=== PATIENT | female | born 1955 | race Caucasian/White ===

== ENCOUNTER 2024-10-12 06:44 | Inpatient (IN) | payer BC, MEDICARE, SELFPAY ==
[2024-10-12] VITALS (14 sets, daily range): BP systolic 102–159; BP diastolic 58–97; BMI 39.3; BMI 37.8
[2024-10-12 04:21] LABS: % Basophils 0.5 % (0-2); % Immature Granulocytes 0.6 % (0-0.5); % Lymphocytes 12.9 % (20.5-51.1); Absolute Eosinophils 0.1 10^3/uL (0-0.7); Absolute Immature Granulocytes 0.1 10^3/uL (0-0.05); Absolute Lymphocytes 1.1 10^3/uL (1.2-3.4); Absolute Monocytes 0.6 10^3/uL (0.1-0.6); Absolute Neutrophils 6.5 10^3/uL (1.4-6.5); Hematocrit 41.1 % (37.0-47.0); Hemoglobin 13.6 g/dL (12.0-16.0); Mean Corp Hgb Conc. 33.1 g/dL (33.0-37.0); Mean Corpuscular Hgb 30.8 pg (27.0-31.0); Mean Corpuscular Volume 93.2 fL (81.0-99.0); Mean Platelet Volume 9.2 fL (7.4-10.4); Nucleated Red Blood Cells % 0 %; Platelet Count 241 10^3/uL (130-400); Red Blood Cell Count 4.41 10^6/uL (4.20-5.40); Red Cell Dist. Width 14.2 % (11.5-14.5); White Blood Cell Count 8.4 10^3/uL (4.8-10.8)
--- NOTE | 2024-10-12 04:36 | ED.GENMED ---
History of Present Illness
General
Chief Complaint: Chest Pain
Source: patient
Exam Limitations: none
Time Seen by Provider: 10/12/24 04:35
Nursing documentation reviewed up to this point in time: agreed with
History of Present Illness
History of Present Illness:
Pleasant 69-year-old female presents the emergency department with chest and jaw pain. This happened around 11:30 PM last evening. Patient also had palpitations at the time. Patient was seen by Dr. Arciniega's office and started on a Holter monitor
this past Tuesday. Patient is concerned because she does have a history of AR. She had a stent in 2009. Patient is also diabetic takes oral agents. She does have a history of rectal cancer. Has high blood pressure hyperlipidemia.
Vital signs are stable. Patient not hypoxic
Nursing note reviewed. I agree with nursing documentation up to this point in time.
Home Meds and allergies reviewed.
NUMBER AND COMPLEXITY OF PROBLEMS ADDRESSED AT THE ENCOUNTER
� Chronic conditions affecting care: Hypertension, hyperlipidemia, diabetes, CAD
� Acute Exacerbation and/or Progression of Chronic Illness: CAD
� Differential Diagnosis includes: AR, non-STEMI, musculoskeletal chest pain
AMOUNT AND/OR COMPLEXITY OF DATA TO BE REVIEWED AND ANALYZED
I performed an independent evaluation of the following and my interpretation is:
EKG: EKG shows normal sinus rhythm, rate of 90 with normal intervals, normal axis no evidence of acute ischemia present. No old EKG available for comparison.
Pulse Ox: Not Hypoxic
Electronic Components Assembler: Sinus Rhythm
CT:
X-rays:
Ultrasound:
Laboratory Studies: Troponin 0.056 and elevated
Other:
Review of other/old records:
Clinical information was obtained by an independent historian:
Prescriptions/Medications Considered but not given:
Further testing considered but not performed:
RISK OF COMPLICATIONS AND/OR MORBIDITY OR MORTALITY OF PATIENT MANAGEMENT
Social determinants of health affecting care: Good Social Support present at the bedside
Discussion with other providers: Hospitalist for admission
Escalation of care including admission/observation vs risk of discharge considered: After being observed in the emergency department, patient is stable for discharge.
CRITICAL CARE NOTE:
Critical care statement: A total of 30 minutes of critical care time was provided for this patient. This time is separate from time utilized to perform the aforementioned documented procedures. Aggregate critical care time includes only time
during which I was engaged in work directly related to the patient's care, as described above, whether at the bedside or elsewhere in the Emergency Department.
Total Time (exclusive of procedures):30
Update:
Review of Systems
Review of Systems
Allergies reviewed?: Yes
Other source history: family ( present at the bedside)
All Other Systems: Not applicable
Constitutional: Reports no symptoms
EENT: Reports no symptoms
Respiratory: Reports no symptoms
Cardiac: Reports chest pain
ABD/GI: Reports no symptoms
: Reports no symptoms
Musculoskeletal: Reports no symptoms
Skin: Reports no symptoms
Neurological: Reports no symptoms
Endocrine: Reports no symptoms
Hematologic/Lymphatic: Reports no symptoms
Psychiatric: Reports no symptoms
Phy Exam
General Physical Exam
General Presentation: well appearing and no apparent distress
General Skin: warm and dry
General Habitus: normal
General Mental: alert
General Hydration: appears well hydrated
ENT Exam
ENT Exam: EOMI, pharynx normal, neck supple and normocephalic
Eye Exam
Eye Exam: PERRL, cornea clear and conjunctiva normal
Cardiovascular Exam
Cardiovascular Exam: regular rate/rhythm, no edema, no murmur, normal peripheral pulses and other (Holter monitor in place)
Pulmonary Exam
Pulmonary Exam: lungs clear, no respiratory distress, no rales, no crackles, no rhonchi, no stridor, no wheezing and no cough
Gastrointestinal Exam
Gastrointestinal Exam: normal bowel sounds, non tender, soft, no organomegaly, no pulsatile mass and non distended
Neurological Exam
Neurological Exam: alert, oriented x3, no motor deficits and speech normal
Musculoskeletal Exam
Musculoskeletal Exam: full ROM and no edema
Skin Exam
Skin Exam: normal color, warm/dry, no rash and no petechia
Psychiatric Exam
Psychiatric Exam: normal mood/affect
Scores
Heart Score for Chest Pain Patients
STEMI patient?: No
History: Highly Suspicious
ECG: Normal
Age: >/= 65 years
Risk Factors: >/= 3 Risk Factors or History of CAD
Troponin: >1 - <3 x Normal Limit
Heart Score for Chest Pain Patients: 7
Heart Score Risk: 72.7 % MACE over next 6 weeks
Course
Orders/Labs/Results
Orders:
Orders
10/12/24 03:51
ECG [Electrocardiogram (*1)] Urgent
Reason for Study: Chest Pain
EKG- Treatment ONCE
10/12/24 04:05
Complete Blood Count/With Diff Urgent
10/12/24 05:21
Comprehensive Metabolic Panel Urgent
Troponin I Urgent
10/12/24 06:14
Aspirin 325 mg PO NOW STA
10/12/24 06:19
PTT Urgent
Comment: Obtain baseline before beginning heparin infusion if not already collected
Heparin 4,000 units IV NOW STA
Pharmacy Request to Place See Dose Instructions PO NOW STA
Discontinue all Active Warfarin orders?: Yes
Nursing to Place Non Medication Order As Directed
Physician Order: PTT 6 hours after initial start of Heparin infusion
10/12/24 06:23
Admit/Transfer Patient As Directed
Co-Sign Provider:
Level of Care: Inpatient admission
Assign to:: IVU
Physician / Group: hospitalist
Diagnosis: chest pain
Reason for Hospitalization: nstemi
Expected length of stay greater than two midnights?: Yes
ELOS- Estimated Length of Stay in days: 2
I certify the patient meets the requirements for IP care: Yes
PRN Pain Medication Management As Directed
May give lesser potent ordered pain med per pt: Yes
preference::
Protocol:: Medication orders for pain may be administered in a
manner that supports deferring to patient preference
when the pt is:
- Requesting an ordered lesser potent pain medication.
Least to most potent pain medications are defined
as: acetaminophen < NSAID < tramadol < opioids
(morphine, oxycodone, hydromorphone).
- Requesting a lesser dose of the same medication IF
ORDERED.
- Requesting a less intrusive route of administration
if both routes are prescribed by the provider (PO <
IV).
10/12/24 06:24
Code Status As Directed
Resuscitation Status: Full Code
10/12/24 06:30
Heparin 49838 Units/250 ml 25,000 units in 250 ml IV PER PROTOCOL
Weight to be used for heparin protocol in kilograms (kg):: 91.2
Protocol:: Cardiac Tx/Acute Coronary
PTT Goal Range to be used:: PTT 73 to 111 seconds
Order type:: Initial
INITIAL Infusion Dose (UNITS/KG/hr) & then follow protocol:: 15 units/kg/hr
Infusion Dose in UNITS/hr & then follow protocol (UNITS/hr):: 1,350
INFUSION RATE in mL/hr & then follow protocol (mL/hr):: 13.5
PTT less than or equal to 64 seconds:: Increase rate by 200 units/hr (+ 2 mL/hr)
PTT 64.1 to 72.9 seconds:: Increase rate by 100 units/hr (+ 1 mL/hr)
PTT 73 to 111 seconds:: Target Range. No change in rate.
PTT 111.1 to 130.9 seconds:: Decrease rate by 100 units/hr (- 1 mL/hr)
PTT 131 to 199.9 seconds:: HOLD for 1 hr. Then decrease rate by 200 units/hr (- 2 mL/hr)
PTT greater than or equal to 200 seconds:: HOLD for 2 hrs & Notify Provider. Then decrease by 200 units/hr (-
2 mL/hr)
Lab follow-up:: Each change, PTT q6h until 2 consecutive are therapeutic. Then PTT
daily.
CR Chest - 2 Views Urgent
Comment:
Reason For Exam: cp
10/12/24 07:[address] See Dose Instructions IV DIRECTED
Abnormal Lab Results
10/12/24 10/12/24
04:05 05:21
Abs Immat Gran (auto) 0.1 H 10^3/uL
(0-0.05)
Absolute Lymphs (auto) 1.1 L 10^3/uL
(1.2-3.4)
Immature Gran % 0.6 H %
(0-0.5)
Neutrophils % 78.0 H %
(42.2-75.2)
Lymphocytes % 12.9 L %
(20.5-51.1)
Chloride 108 H mmol/L
(98-107)
Carbon Dioxide 21 L mmol/L
(22-30)
BUN 26 H mg/dl
(7-17)
Creatinine 1.1 H mg/dL
(0.6-1.0)
Glucose 178 H mg/dl
(70-99)
Troponin I 0.056 H* ng/ml
10/12/24 04:05
10/12/24 05:21
Vital Signs
Initial and Last Documented VS:
Initial Vital Signs
Temp Pulse Resp BP Pulse Ox
98.2 F 97 16 137/74 96
10/12/24 03:45 10/12/24 03:45 10/12/24 03:45 10/12/24 03:45 10/12/24 03:45
Last Documented Vital Signs
Temp Pulse Resp BP Pulse Ox
98.2 F 74 16 102/60 93
10/12/24 03:45 10/12/24 05:15 10/12/24 06:04 10/12/24 05:20 10/12/24 05:15
*Pulse Oximetry
Patient hypoxic: no
*Critical Care Note
Total Time (30-74mins, 75-104mins- exclusive of procedures): 30
ED Attending Note
-
Portions of this chart may have been created with voice recognition software.� Occasional wrong word or��sound alike� substitutions may have occurred due to the inherent limitations of voice recognition software.
Discharge Plan
Departure
Patient Disposition: Admit
Date of Disposition: 10/12/24
Time of Disposition: 06:35
Admit to: IVU
Presentation/result/management discussed w/ accepting MD/DO: Hospitalist
Discharge Problem:
Chest pain
Prescriptions:
No Action
lisinopril 20 mg Tablet
20 mg PO DAILY
aspirin 81 mg Tablet,Delayed Release (Dr/Ec)
81 mg PO DAILY
glimepiride 2 mg Tablet
2 mg PO DAILY
cholecalciferol (vitamin D3) [Vitamin D3] 25 mcg (1,000 unit) Capsule
25 mcg PO DAILY
rosuvastatin 10 mg Tablet
10 mg PO DAILY
metoprolol tartrate 25 mg Tablet
25 mg PO BID
metformin 1,000 mg Tablet Extended Release 24hr
1,000 mg PO BID
duloxetine 30 mg Capsule,Delayed Release(Dr/Ec)
30 mg PO BID
Referrals:
Rachael Keller MD [Family Provider] -
Interventions
Interventions:
*Risk Screen - Suicide Last Done: 10/12/24 03:45
*General Assessment Last Done: 10/12/24 06:04
*Neglect/Abuse Screening Last Done: 10/12/24 03:45
*ED COVID-19 Vaccine History Last Done: 10/12/24 03:45
ED- Cardiac Assessment Last Done: 10/12/24 05:24
Discharge Date and Time
Print Language: ALBANIAN
[2024-10-12 05:50] LABS: ALT (SGPT) 16 U/L (0-35); AST (SGOT) 20 U/L (14-36); Albumin 3.5 g/dl (3.5-5.0); Alkaline Phosphatase 61 U/L (38-126); Blood Urea Nitrogen 26 mg/dl (7-17); Calcium 9.5 mg/dl (8.4-10.2); Carbon Dioxide 21 mmol/L (22-30); Chloride 108 mmol/L (98-107); Glucose 178 mg/dl (70-99); Potassium 4.4 mmol/L (3.5-5.1); Sodium 138 mmol/L (135-145); Total Bilirubin 0.3 mg/dl (0.2-1.3); eGFR 54.39
[2024-10-12 06:05] LABS: Troponin I 0.056 ng/ml
[2024-10-12] MEDS: ASPIRIN 325 MG PO (06:19)
--- NOTE | 2024-10-12 06:44 | HPS.HSE ---
Family Physician
-
Family Physician: Rachael Keller
Chief Complaint
-
Chest pain
History of Present Illness
This is a 69-year-old female with past medical history of dwc-udtvnqa-pvuicyuib diabetes, hypertension, history of CAD status post WI 2009 status post PCI x 1 at that time who presents to the emergency department with acute onset of chest discomfort
at around 12 midnight.
Patient reports a recent history of palpitations and was seen in cardiology clinic status post placement of her ambulatory monitor. She reported that after midnight today she felt the sensation of palpitations and then noted pain in her jaws and
also radiating to the back of her head. She reports the pain radiates to her left arm. She denies a pressure sensation. She reports some nausea without vomiting. She denied any diaphoresis. She denies shortness of breath. The pain was lasting
about 5 minutes before resolving and lasted for about 3 hours. She was chest pain-free on arrival in the emergency department. Patient reports compliance with her aspirin and statin. No recent episodes of exertional chest pain.
On arrival in the emergency department she was afebrile, hemodynamically stable with a blood pressure of 110/60 and a pulse of 70. ECG showed normal sinus rhythm at a rate of [address] or T wave changes. Troponin was 0.056. CBC was
unremarkable. Electrolytes BUN/creatinine were also unremarkable. Chest Xray remains pending.
Medical History
Past Medical History
Past Medical History: Reports CAD (Status post WI and stent in 2009.), Cancer (Bladder cancer, rectal cancer), HTN, Hypercholesterolemia and NIDDM
Past Surgical History: Reports Bowel Resection (Colostomy 2013,), Orthopedic (Left knee arthroplasty 2019) and Urological (Cystoscopy 2023)
Social History
Tobacco: Former Smoker
Alcohol: None
Drug: None
Personal:
Living: With Family
Family History
Family History: Not pertinent
Allergies / Home Medications
Allergies reflects when Allergies were last updated in [facility].
Home Medications with original date entered in [facility]
Allergy/Medication List:
Allergies
Allergy/AdvReac Type Severity Reaction Status Date / Time
No Known Allergies Allergy Unverified 10/12/24 03:44
Home Medications
aspirin 81 mg tablet,delayed release 81 mg PO DAILY 10/12/24
cholecalciferol (vitamin D3) 25 mcg (1,000 unit) capsule (Vitamin D3) 25 mcg PO DAILY 10/12/24
duloxetine 30 mg capsule,delayed release 30 mg PO BID 10/12/24
glimepiride 2 mg tablet 2 mg PO DAILY 10/12/24
lisinopril 20 mg tablet 20 mg PO DAILY 10/12/24
metformin 1,000 mg tablet,extended release 24hr (osmotic) 1,000 mg PO BID 10/12/24
metoprolol tartrate 25 mg tablet 25 mg PO BID 10/12/24
rosuvastatin 10 mg tablet 10 mg PO DAILY 10/12/24
Review of Systems
-
History Source: Patient
Constitutional: Reports No Symptoms
EENT: Reports No Symptoms
Respiratory: Reports No Symptoms
Cardiac: Reports Chest Pain and Palpitations
Abdomen/GI: Reports Nausea
: Reports No Symptoms
Musculoskeletal: Reports No Symptoms
Skin: Reports No Symptoms
Neurological: Reports No Symptoms
Endocrine: Reports No Symptoms
Hematologic/Lymphatic: Reports No Symptoms
Psych: Reports No Symptoms
Physical Exam
Vital Signs
Vital Signs
Temp Pulse Resp BP Pulse Ox
98.2 F 74 16 102/60 93
10/12/24 03:45 10/12/24 05:15 10/12/24 06:04 10/12/24 05:20 10/12/24 05:15
Physical Exam
General: Well Developed, Well Nourished, No Apparent Distress, Comfortable and Conversant
HEENT: NormoCephalic, Anicteric, Moist mucous membranes, Atraumatic, PERRLA and Neck Nontender
Respiratory: Clear
Cardiac: S1/S2 and Regular Rhythm
Breast: Deferred by me
GI: Soft, Non Tender, Non Distended and Normal Bowel Sounds
Rectal: Deferred by Provider
Genito-urinary: Deferred by me
Musculoskeletal: No Clubbing, No Cyanosis and No Edema
Skin: Warm
Neuro: AO x 3 and Nonfocal/grossly intact
Hematologic/Lymphatic: No Lymphadenopathy
Psych: Calm
Laboratory Results
-
10/12/24 04:05
10/12/24 05:21
Laboratory Results
Total Bilirubin 0.3 mg/dl (0.2-1.3) 10/12/24 05:21
AST 20 U/L (14-36) 10/12/24 05:21
ALT 16 U/L (0-35) 10/12/24 05:21
Alkaline Phosphatase 61 U/L (38-126) 10/12/24 05:21
Troponin I 0.056 ng/ml H* 10/12/24 05:21
Data Reviewed
-
Diagnostic Radiology: Image Personally Visualized and interpreted
Medical Tests (Nuc Med, Echo, EKG etc): Image Personally Visualized and interpreted
Lab Data: Labs Reviewed by me
Old Records: Reviewed
Impression/Plan
-
IMPRESSION:
69-year-old female with past medical history of CAD status post WI 2009, ykr-sdmkizo-jhifoigpx diabetes who presents to the emergency department with acute episode of chest pain starting at around 12 AM, associated with palpitations and chest pain
radiating to the jaw as well as the left. ECG was nonischemic. No arrhythmia on ECG. Troponin was elevated at 0.05. Patient with history of recent palpitations status post monitoring placed a few days ago by cardiology.
PLAN:
NSTEMI - ACS vs demand related ischemia in setting of arrhythmia. Currently chest pain free and no palpitations
- admit to telemetry
- s/p aspirin 325x 1, continue aspirin 81 daily, continue statin
- heparin gtt, cycle enzymes
- nitro prn chest pain if no arrythmia
- continue metoprolol tartrate bid
- echo, cardovascular testing
- npo pending cardiology eval
- cardiology consult, may eval monitor early
DM II -
- npo for now
- blood glucose q6 with low dose sliding scale insulin
- holding glimepiride and metformin
HTN
- stable, continue lisinopril and metoprolol
DVT PPX - on heparin gtt
Code status - Full Code
[2024-10-12 07:20] LABS: APTT 26.4 Sec (23.4-35.0)
[2024-10-12] MEDS: HEPARIN 25000 UNITS/250 ML IV (07:38)
[2024-10-12] MEDS: HEPARIN 4000 UNITS IV (07:38)
[2024-10-12 09:12] LABS: Troponin I 0.078 ng/ml
--- NOTE | 2024-10-12 09:15 | W.PN.HOSP.TC ---
Today's Communication/Plan
-
Hopeful for discharge tomorrow
Assessment / Plan
Assessment / Plan
HPI: 69-year-old female with past medical history of aqc-wvxyxdg-vlxcbejsu diabetes, hypertension, history of CAD status post RI 2010 status post PCI x 1 at that time who presents to the emergency department with acute onset of chest discomfort at
around 12 midnight.
NSTEMI - ACS vs demand related ischemia in setting of arrhythmia. Currently chest pain free and no palpitations
-Appreciate cardiology input, 10/12 cardiac catheterization shows nonobstructive coronary artery disease. She has a small diagonal branch with 70-80% lesion. Cardiology does not feel that this was the culprit, no stenting was performed. That they
did not think was the culprit so no stenting performed. admit to telemetry
-Cardiology recommends medical optimization, aspirin 81 mg daily, Toprol-XL 25 mg twice a day, lisinopril 20 mg daily
-Increase rosuvastatin to 20 mg daily, consider Imdur
DM II
-Hemoglobin A1c 6.7
-Hold metformin for 3 days post cath
-Can resume glimepiride upon discharge
-Carb controlled diet, sliding scale insulin
Essential hypertension
-Continue lisinopril and metoprolol
Obesity due to excess calories
� Affects all aspects of care
DVT prophylaxis�subcu Lovenox
Full code
Physical Exam
General: Obese, no acute distress
HEENT: Normocephalic, Atraumatic, EOMI, MMM
Respiratory: Clear to Auscultation bilaterally
Cardiac: Normal S1/S2, Regular Rate and Rhythm
GI: Soft, Nontender, Nondistended, Normal Bowel Sounds
Extremities: No Clubbing, Cyanosis, or Edema
Neuro: Nonfocal/Grossly Intact
Psych: Calm, Cooperative
Derm: No Visible lesions
Anticipated Discharge: Within 24 hours
Subjective/Interval History
-
Date of Service: October 12, 2024
No more recurrence of chest pain. No nausea, no vomiting.
Objective Data
-
Labs:
Laboratory Results
10/12/24 10/12/24 10/12/24
04:05 05:21 06:58
WBC 8.4
Hgb 13.6
Hct 41.1
Plt Count 241
APTT 26.4
Sodium Cancelled 138
Potassium Cancelled 4.4
Chloride Cancelled 108 H
Carbon Dioxide Cancelled 21 L
BUN Cancelled 26 H
Creatinine Cancelled 1.1 H
Glucose Cancelled 178 H
Calcium Cancelled 9.5
Total Bilirubin Cancelled 0.3
AST Cancelled 20
ALT Cancelled 16
Alkaline Phosphatase Cancelled 61
Vital Signs:
Vital Signs
Temp Pulse Resp BP Pulse Ox
98.2 F 63 16 113/58 94
10/12/24 08:38 10/12/24 07:30 10/12/24 08:38 10/12/24 07:09 10/12/24 08:38
[2024-10-12 09:41] LABS: Glucose - Point of Care 106 mg/dl (70-99)
[2024-10-12] MEDS: CYMBALTA DELAYED RELEASE 30 MG PO ×2 (10:13→20:05)
[2024-10-12] MEDS: CRESTOR 10 MG PO (10:13)
[2024-10-12] MEDS: ZESTRIL 20 MG PO (10:13)
--- NOTE | 2024-10-12 11:18 | CON.CAR ---
Addendum entered and electronically signed by Ramez Avelar MD 10/12/24 13:08:
I saw and examined the patient.
The NURSE OBGYN's note was reviewed and I agree with the note.
Comment:
69-year-old female with CAD s/p PCI in 2009 (done elsewhere), HTN, HLD, DM, obesity who presents with jaw pain radiating to her arm. She reports that she woke up last night around midnight with jaw pain that radiated to her left arm. It was
associated with palpitations. No nausea, vomiting, diuresis, or presyncope. It was stuttering in nature. She tried to take 2 of her husbands sublingual nitroglycerin tablets but these did not help. She decided to come to the ER around 3 AM. In
the ER her ECG showed normal sinus rhythm with no ischemic changes. Her troponin was 0.056 and trended to 0.078. She was given a full dose aspirin and started on a heparin drip. She is completely pain-free at the time of my interview. Of note
she was seen in our office by Dr. Arciniega on 10/09 and was complaining of exertional shortness of breath and palpitations. He ordered an echocardiogram, stress test, and 7-day ambulatory monitor which she is wearing at this time. Exam today is
notable for a well-appearing, comfortable woman. CV exam with regular rate and rhythm, no murmurs/rubs/gallops, lungs are clear to auscultation bilaterally and she has no lower extremity edema. Her labs are otherwise notable for creatinine 1.1.
Third troponin, hemoglobin A1c, and lipids are pending. Echocardiogram shows normal biventricular function with no regional wall motion abnormalities and no significant valvular disease. Given her symptoms and positive troponin, we need to rule
out epicardial coronary artery disease with left heart catheterization. She has received 325 mg aspirin and is on a heparin drip. Continue home metoprolol succinate 25 mg twice daily and lisinopril 20 mg daily. We will increase her rosuvastatin
to 20 mg daily given history of CAD. Follow-up repeat lipids.
Original Note:
Consultation
Consultation Request
Date/Time Consultation Requested: 10/12/24 8:30a
Date/Time Consultation Performed: 10/12/24 11a
Requesting Provider: Dr. Fong
Performing Provider: RINKU Simons for Dr. Avelar
Reason for Consultation: chest pain
Medical History
-
Chief Complaint: jaw/chest pain
History of Present Illness:
Mrs. Mckeon is a 69 yo female with CAD s/p PCI 2009, obesity, HTN, DM, HLD, rectal cancer with colostomy 2013 and bladder cancer, and junctional tachycardia, who presents to the ER with c/o jaw pain and racing heart feeling that woke her from
sleeping this am. She admits to mild chest pain and left upper shoulder pain as well. These symptoms would occur, last for 1 minute, resolve on their own then recur again. Currently she denies any symptoms. Initial EKG showed NSR, then SR 70 bpm
with nonspecific T wave abn. Troponin trend 0.056, 0.078. She was just seen by Dr. Arciniega in our office 10/09/24 and outpatient echo, stress test and 2 week monitor were ordered.
Past Medical History
Past Medical History: Other (as above)
Past Surgical History: Other (as above)
Social History
Tobacco: Former Smoker
Alcohol: None
Personal:
Living: With Family
Family History
Family History: Reviewed & Not Pertinent
Allergies / Home Medications
Allergy/AdvReac Type Severity Reaction Status Date / Time
No Known Allergies Allergy Unverified 10/12/24 03:44
�Medication �Instructions �Recorded �Confirmed �Type
aspirin 81 mg tablet,delayed 81 mg PO DAILY 10/12/24 10/12/24 History
release
cholecalciferol (vitamin D3) 25 25 mcg PO DAILY 10/12/24 10/12/24 History
mcg (1,000 unit) capsule (Vitamin
D3)
duloxetine 30 mg capsule,delayed 30 mg PO BID 10/12/24 10/12/24 History
release
glimepiride 2 mg tablet 2 mg PO DAILY 10/12/24 10/12/24 History
ibuprofen 200 mg tablet (Advil) 200 mg PO Q6HPRN PRN mild pain 10/12/24 10/12/24 History
lisinopril 20 mg tablet 20 mg PO DAILY 10/12/24 10/12/24 History
metformin 1,000 mg tablet 1,000 mg PO BID 10/12/24 10/12/24 History
metoprolol succinate 25 mg 25 mg PO BID 10/12/24 10/12/24 History
tablet,extended release 24 hr
(Toprol XL)
rosuvastatin 10 mg tablet 10 mg PO QPM 10/12/24 10/12/24 History
Review of Systems
-
History Source: Patient
All other systems: Negative unless noted
Physical Exam
Vital Signs
Temp Pulse Resp BP Pulse Ox
98.2 F 66 16 145/87 94
10/12/24 08:38 10/12/24 11:00 10/12/24 08:38 10/12/24 08:38 10/12/24 08:38
Lab Results
10/12/24 04:05
10/12/24 05:21
Troponin I 0.078 ng/ml H* D 10/12/24 08:18
Physical Exam
General: Well Developed, Well Nourished and No Apparent Distress
HEENT: Normocephalic, Anicteric and Moist Mucous Membranes
Respiratory: Clear and Non Labored Respirations
Cardiac: S1/S2 and Regular Rhythm
Breast: Deferred by me
GI: Soft, Non Tender, Non Distended and Normal Bowel Sounds
Rectal: Deferred by Provider
Genito-urinary: No Costovertebral Tender
Musculoskeletal: No Cyanosis and Edema
Skin: Warm and Dry
Neuro: AO x 3
Hematologic/Lymphatic: No Lymphadenopathy
Psych: Calm
Impression / Plan
-
Jaw/chest/left arm pain - acute last night and now resolved.
- NSTEMI with abn troponin trend 0.056, 0.078.
- check echo now.
- ASA, IV Heparin.
- last PCI 07/2010.
- plan for [facility] today.
HTN - stable on outpatient Toprol, Lisinopril, continue.
HLD - on crestor 10mg daily.
- lipids pending.
Junctional tachycardia - c/o palpitations, racing heart.
- 2 week outpatient cardiac monitor technician was ordered this week.
DM - on Glimepiride as outpatient.
- per primary service.
Obesity - BMI 37.8.
- we reviewed guidelines for weight loss.
Data Reviewed
-
EKG: Tracing Personally Visualized and interpreted (NSR 70 bpm with nonspecific T wave abn)
Radiology: Report Reviewed by me (cxr: NAD)
Labs: Labs Reviewed by me
Old Records: Reviewed
[2024-10-12] MEDS: TOPROL XL 25 MG PO ×2 (11:37→20:05)
--- NOTE | 2024-10-12 11:44 | PTCARENOTE ---
Rec'd pt from ED. Heparin gtt infusing at 13.5 ml/hr. Pt has no c/o CP/discomfort at this time. Assessment completed as documented. VSS. Tele- SR. Oriented pt to unit. Currently in bed; call danette w/in reach.
[2024-10-12 12:29] LABS: Glucose - Point of Care 126 mg/dl (70-99)
[2024-10-12 13:38] LABS: APTT 80.7 Sec (23.4-35.0)
[2024-10-12 13:57] LABS: HDL Cholesterol 54 mg/dl; LDL Cholesterol, Calculated 32 mg/dl; Total Cholesterol 118 mg/dl (50-199); Triglyceride 160 mg/dl (10-149); Very Low Density Lipoprotein 32 mg/dl (0-30)
--- NOTE | 2024-10-12 14:05 | CM ---
CM following for DC planning needs.
Met w/ patient at bedside to complete initial assessment.
Pt. resides in a private, 2 story home w/ spouse. Functionally, patient is indep. at baseline w/ ADLs, mobility without the use of any assisted device.
Goal is for home, no needs.
Will cont. to follow.
[2024-10-12 15:03] LABS: Glycohemoglobin (HgbA1c) 6.7 % (4.0-5.6)
--- NOTE | 2024-10-12 16:02 | ITS.CL.PN ---
[facility] - Procedure Note
Procedure
Procedure Note:
CARDIAC CATHETERIZATION REPORT
Date of Procedure: 10/12/2024
Referring: Dr. Agnieszka Avelar MD
INDICATION: NSTEMI
PROCEDURE:
1. Left heart catheterization
2. Coronary angiography
ACCESS: 6F right radial artery (TR band)
CATHETERS:
1. 6F JR4
2. 6F JL3.5
HEMODYNAMIC DATA
LV 141/18 (EDP 18) mmHg
AO 149/76 (mean 104) mmHg
CORONARY ANGIOGRAPHY
LM: large, normal
LAD: large vessel giving rise to a small D1 and moderate caliber D2. There is a patent stent in the proximal LAD with mild ISR. There is a focal 40% stenosis in the mid LAD, and a focal 70% stenosis in the ostium of D2. There is TIMI3 flow
throughout the LAD.
Ramus: moderate caliber branch with mild disease.
LCx: large vessel giving rise to a large OM1 and small LPL branch. There is mild non-obstructive disease.
RCA: large vessel giving rise to a moderate caliber RPDA and moderate caliber RPL branch. There is mild non-obstructive disease.
RADIATION:
Radiation (mGy): 300
DAP (cm2.Gy): 3.3
Fluoroscopy time (minutes): 18.7
CONCLUSIONS
1. Single vessel obstructive CAD in a right dominant system as described. The 70% stenosis in the D2 ostium does not appear to be hazy/thrombotic and there is TIMI3 flow in the vessel. This was not felt to be a culprit lesion and thus PCI was
deferred.
RECOMMENDATIONS:
1. Expectant management after cardiac catheterization via right approach.
2. Aggressive secondary prevention of CAD.
Copy to: Dr. Andrew Arciniega (cardiology); Dr. Rachael John (PCP)
Signed: Jesus Singletary MD, PhD
[2024-10-12 16:08] LABS: Glucose - Point of Care 128 mg/dl (70-99)
[2024-10-12 18:22] LABS: Troponin I 0.064 ng/ml
[2024-10-12 22:08] LABS: Glucose - Point of Care 139 mg/dl (70-99)
[2024-10-12] MEDS: MELATONIN 5 MG PO (22:52)
--- NOTE | 2024-10-13 00:04 | PTCARENOTE ---
Patient SB to NSR on court monitor. Right radial gauze with tegaderm C/D/I, area soft to palpation, no ecchymosis noted, radial pulse +2 to palpation. Patient denies chest pain, palpitations, nausea, and/or vomiting. One time dose of melatonin
given as patient felt she was unable to fall asleep, see MAR. Call samaniego within reach. Plan of care ongoing.
[2024-10-13 03:07] VITALS: BP 119/70
[2024-10-13 03:23] LABS: Hematocrit 35.9 % (37.0-47.0); Hemoglobin 11.7 g/dL (12.0-16.0); Mean Corp Hgb Conc. 32.6 g/dL (33.0-37.0); Mean Corpuscular Hgb 30.8 pg (27.0-31.0); Mean Corpuscular Volume 94.5 fL (81.0-99.0); Platelet Count 199 10^3/uL (130-400); Red Cell Dist. Width 14.1 % (11.5-14.5); White Blood Cell Count 4.8 10^3/uL (4.8-10.8)
[2024-10-13 03:51] LABS: Blood Urea Nitrogen 21 mg/dl (7-17); Calcium 8.8 mg/dl (8.4-10.2); Carbon Dioxide 24 mmol/L (22-30); Chloride 107 mmol/L (98-107); Estimated Creatinine Clearance 65 ml/min; Glucose 104 mg/dl (70-99); Potassium 4.3 mmol/L (3.5-5.1); Sodium 140 mmol/L (135-145); eGFR > 60.00
[2024-10-13 08:02] VITALS: BP 146/69
[2024-10-13] MEDS: LOW STRENGTH ASPIRIN 81 MG PO (08:12)
[2024-10-13] MEDS: TOPROL XL 25 MG PO (08:12)
[2024-10-13] MEDS: ZESTRIL 20 MG PO (08:12)
[2024-10-13] MEDS: CYMBALTA DELAYED RELEASE 30 MG PO (08:13)
[2024-10-13] MEDS: CRESTOR 20 MG PO (08:13)
[2024-10-13 08:32] LABS: Glucose - Point of Care 130 mg/dl (70-99)
--- NOTE | 2024-10-13 08:36 | W.PN.CD ---
Today's Communication / Plan
-
Stable overnight.
No occlusive/culprit CAD.
LDL is at goal.
HR/BP controlled.
Stable for outpatient follow up.
Discharge per hospitalist.
Impression / Plan
-
Impression/Plan: 69 y/o female with obesity, NIDDM, HTN, HLD and CAD with prior NM/PCI ([facility], 2009) admitted with acute chest pain radiating to left arm/jaw with abnormal troponin consistent with ACS.
#MINOCA
-Acute.
-Chest pain resolved by the time of cardiac evaluation.
-Troponin trend 0.056 --> 0.078 --> 0.080 --> 0.064.
-Echocardiogram shows normal function, LVEF 55-60%.
-Catheterization revealed patent LAD stent, 70% ostial D2 lesion and luminal irregularities elsewhere. Possible endothelial dysfunction/microvascular angina.
-Medical management with metoprolol, lisinopril, aspirin, high dose, high potency statin.
-If pain recurs, we can add long acting nitrates or calcium channel blockers. HR ~ 60, making up titration of metoprolol less than ideal.
#HTN
-Chronic, stable.
-Continue metoprolol and lisinopril.
#HLD
-Chronic, stable.
-Total cholesterol = 118, LDL = 32 (!), HDL = 54, Triglycerides = 160.
-Agree with up titration of rosuvastatin. LDL is at goal (< 55).
-She may benefit from icosapent ethyl as an outpatient. Goal Triglycerides < 150.
#Junctional tachycardia
-c/o palpitations, racing heart.
-Telemetry stable.
-2 week outpatient technical testing engineer was ordered this week.
-Outpatient follow up.
#NIDDM2
-Chronic, stable.
-HbA1c = 6.7%.
-Continue home glimiperide.
-Given CAD + DM + Obesity, she would be a good candidate for GLP1 agonists as an outpatient.
#Obesity
-Chronic, stable. BMI = 37.8.
-Guidelines for weight loss reviewed.
-Consider GLP1 agonist as above.
#Dispo
-Stable for outpatient cardiology follow up.
Subjective/Interval History:
Patient presented with chest pain/tachycardia/abnormal troponin yesterday, consistent with ACS.
Echocardiogram was normal.
Cardiac catheterization showed a 70% lesion in an ostial D2, non-hazy, likely non-culprit. PCI deferred.
Overnight, no acute events.
No subjective complaints.
DATA:
Transthoracic echo, 10/12/2024:
CONCLUSIONS
Normal biventricular size and systolic function without regional wall motion
abnormality. LVEF 55-60%.
No significant valvular disease.
No prior study available for comparison.
Cardiac Catheterization, 10/12/2024:
CORONARY ANGIOGRAPHY
LM: large, normal
LAD: large vessel giving rise to a small D1 and moderate caliber D2. There is a patent stent in the proximal LAD with mild ISR. There is a focal 40% stenosis in the mid LAD, and a focal 70% stenosis in the ostium of D2. There is TIMI3 flow
throughout the LAD.
Ramus: moderate caliber branch with mild disease.
LCx: large vessel giving rise to a large OM1 and small LPL branch. There is mild non-obstructive disease.
RCA: large vessel giving rise to a moderate caliber RPDA and moderate caliber RPL branch. There is mild non-obstructive disease.
CONCLUSIONS
1. Single vessel obstructive CAD in a right dominant system as described. The 70% stenosis in the D2 ostium does not appear to be hazy/thrombotic and there is TIMI3 flow in the vessel. This was not felt to be a culprit lesion and thus PCI was
deferred.
Physical Exam
Vital Signs/Labs
Vital Signs
Temp Pulse Resp BP Pulse Ox
36.4 C 53 14 119/70 95
10/13/24 03:05 10/13/24 06:00 10/13/24 03:05 10/13/24 03:07 10/13/24 03:07
10/11/24 10/12/24 10/13/24
11:59 11:59 11:59
Actual Weight 87.9 kg
10/13/24 03:13
10/13/24 03:13
APTT Cancelled 10/12/24 20:00
Triglycerides 160 mg/dl (10-149) H 10/12/24 13:07
LDL Cholesterol, Calc 32 mg/dl 10/12/24 13:07
VLDL Cholesterol, Calc 32 mg/dl (0-30) H 10/12/24 13:07
HDL Cholesterol 54 mg/dl 10/12/24 13:07
LAB Results
10/12/24 10/12/24 10/12/24
04:05 05:21 08:18
Troponin I Cancelled 0.056 H* 0.078 H* D
10/12/24 10/12/24 10/12/24
13:06 16:59 17:46
Troponin I 0.080 H* Cancelled 0.064 H*
10/12/24
20:00
Troponin I Cancelled
Physical Exam
Constitutional: No acute distress and Comfortable
EENT: Anicteric and Moist mucous membranes
Cardiovascular: Rhythm & rate is regular, Pedal edema is absent, JVD pressure is normal, S1S2 is normal and Murmur/rub/gallop absent
Respiratory: Respiratory effort normal, Lungs clear to auscul., Wheeze Absent, Crackles Absent and Rhonchi Absent
GI: Soft, Distention absent, Flat, Non tender and Normal bowel sounds
Neuro/Psych: AO x 3
Other: Cath Site (Right radial access site is C/D/I.)
Data Reviewed
-
Date of Service: October 13, 2024
Medical Decision Making: Reviewed Test Results, Independent Historian Assessment, Test Interpretation and Review of Case with other Provider
EKG: Tracing Personally Visualized and interpreted and Report Reviewed by me
Echo: Report Reviewed by me
X-Ray/CT/US/MRI/NUC/PET: Image Personally Visualized and interpreted and Report Reviewed by me
Medical Tests (PFT, Pathology etc): Image Personally Visualized and interpreted, Report Reviewed by me and Discussed with Patient
Labs: Labs Reviewed by me
--- NOTE | 2024-10-13 09:13 | W.PN.HOSP.TC ---
Today's Communication/Plan
-
Cleared by cardiology for discharge today
Assessment / Plan
Assessment / Plan
HPI: 69-year-old female with past medical history of eda-sejmlvy-[id number] diabetes, hypertension, history of CAD status post IN 2009 status post PCI x 1 at that time who presents to the emergency department with acute onset of chest discomfort at
around 12 midnight.
NSTEMI - ACS vs demand related ischemia in setting of arrhythmia. Currently chest pain free and no palpitations
-Appreciate cardiology input, 10/12 cardiac catheterization shows nonobstructive coronary artery disease. She has a small diagonal branch with 70-80% lesion. Cardiology does not feel that this was the culprit, no stenting was performed. That they
did not think was the culprit so no stenting performed. admit to telemetry
-Cardiology recommends medical optimization, aspirin 81 mg daily, Toprol-XL 25 mg twice a day, lisinopril 20 mg daily
-LDL at goal, continue home rosuvastatin 10 mg
-Cleared by cardiology for discharge, follow-up with cardiology in the office
DM II
-Hemoglobin A1c 6.7
-Hold metformin for 3 days post cath
-Can resume glimepiride upon discharge
-Carb controlled diet, sliding scale insulin
-Hold metformin for 3 days upon discharge
Essential hypertension
-Continue lisinopril and metoprolol
Obesity due to excess calories
� Affects all aspects of care
DVT prophylaxis�subcu Lovenox
Full code
Physical Exam
General: Obese, no acute distress
HEENT: Normocephalic, Atraumatic, EOMI, MMM
Respiratory: Clear to Auscultation bilaterally
Cardiac: Normal S1/S2, Regular Rate and Rhythm
GI: Soft, Nontender, Nondistended, Normal Bowel Sounds
Extremities: No Clubbing, Cyanosis, or Edema
Neuro: Nonfocal/Grossly Intact
Anticipated Discharge: Today
Subjective/Interval History
-
Date of Service: October 13, 2024
No recurrence of chest pain. No shortness of breath. No fever, no vomiting. Patient is eager for discharge today.
Objective Data
-
Labs:
Laboratory Results
10/13/24
03:13
WBC 4.8
Hgb 11.7 L
Hct 35.9 L
Plt Count 199
Sodium 140
Potassium 4.3
Chloride 107
Carbon Dioxide 24
BUN 21 H
Creatinine 0.8
Glucose 104 H
Calcium 8.8
Vital Signs:
Vital Signs
Temp Pulse Resp BP Pulse Ox
97.6 F 53 14 119/70 95
10/13/24 03:05 10/13/24 06:00 10/13/24 03:05 10/13/24 03:07 10/13/24 03:07
--- NOTE | 2024-10-13 11:41 | W.DCSUMMARY ---
Discharge Summary
Discharge Data
Date of Admission: 10/12/24
Date of Discharge: 10/13/24
-
Pending Results: No
Hospital Course
Discharge diagnosis:
Non-ST elevation myocardial infarction
History of coronary artery disease status post stent placement
Type 2 diabetes
Essential hypertension
Obesity due to excess calories
Consults: Cardiology
Procedures:
10/12/2024 cardiac catheterization
CONCLUSIONS
1. Single vessel obstructive CAD in a right dominant system as described. The 70% stenosis in the D2 ostium does not appear to be hazy/thrombotic and there is TIMI3 flow in the vessel. This was not felt to be a culprit lesion and thus PCI was
deferred.
RECOMMENDATIONS:
1. Expectant management after cardiac catheterization via right approach.
2. Aggressive secondary prevention of CAD.
Hospital course:
69-year-old female with a past medical history of DC, CAD status post PCI, hypertension, hyperlipidemia, obesity, and type 2 diabetes who presented to the hospital with chest pain, and was admitted for non-ST elevation myocardial infarction.
Patient's chest pain resolved when she presented to the hospital. Patient was seen in conjunction with cardiology, and underwent cardiac catheterization on 10/12/2024. There is 70% stenosis of the D2 ostium, cardiology does not feel that this is
responsible for her symptoms. Cardiology recommends medical management. Her LDL is at goal at 32, she can continue her home rosuvastatin 10 mg daily. She did not have any recurrence of chest pain. She is continued on her home aspirin,
lisinopril, and Toprol XL. She has been counseled to hold her metformin and ibuprofen for 3 days postcatheterization. She is medically stable and cleared by cardiology for discharge. She needs to follow-up with her primary care doctor in 1 week,
and cardiology in the office as directed.
Disposition: Home self-care
Discharge planning: Required 39 minutes
Discharge Plan
-
Patient Disposition: Home (Routine Discharge)
Discharge Diagnosis/Procedures: Chest pain and coronary artery disease status post cardiac cath
Condition: Good
Diet: Low Cholesterol
Activity: As tolerated
Driving Restrictions: No driving for 24 hours
Activity Restrictions/Additional Instructions:
Please follow-up with your primary care doctor in 1 week, and cardiology in the office as scheduled.
Stand Alone Forms: DC Instructions- Cath/EP Lab
Referrals:
Anita Chen CRNP [Specified Professional Personl] - 11/07/24 9:20 am
Rachael Keller MD [Family Provider] - in one week
Additional Discharge Medication Instructions: Hold Metformin post procedure, resume on Tuesday evening
Prescriptions:
Continued
lisinopril 20 mg Tablet
20 mg PO DAILY
aspirin 81 mg Tablet,Delayed Release (Dr/Ec)
81 mg PO DAILY
glimepiride 2 mg Tablet
2 mg PO DAILY
cholecalciferol (vitamin D3) [Vitamin D3] 25 mcg (1,000 unit) Capsule
25 mcg PO DAILY
rosuvastatin 10 mg Tablet
10 mg PO QPM
duloxetine 30 mg Capsule,Delayed Release(Dr/Ec)
30 mg PO BID
metoprolol succinate [Toprol XL] 25 mg Tablet Extended Release 24 Hr
25 mg PO BID
Held
metformin 1,000 mg Tablet
1,000 mg PO BID
Hold Instructions: Resume on 10/15/24.
ibuprofen [Advil] 200 mg Tablet
200 mg PO Q6HPRN PRN (Reason: mild pain)
Hold Instructions: Resume on 10/15/24.
Discharge Orders:
Discharge Patient (As Directed); Ordered 10/13/24
Ordered By: Dariel Mcgee
Care Plan Goals
Care Plan Goals:
Problem: Readiness for enhanced knowledge related to diagnosis and treatment plan
Goal: Understand your diagnosis and treatment plan needs, including medications if applicable.
Instructions: Know your diagnosis, underlying causes and treatment plan options, including medications if applicable. Consult with your health care team to learn about your diagnosis and treatment plan, including medications if applicable.
Discharge Date and Time
Discharge Date/Time: 10/13/24 12:51
Print Language: YI
[2024-10-13 11:53] VITALS: BP 140/89
== END 2024-10-13 12:51 | disposition home or self-care (01) | DRG 282 ==
LOC: IVU 06:44
PROVIDERS: Nurse Practitioner Adult Health; Student in an Organized Health Care Education/Training Program; ADMITTING PHYSICIAN Internal Medicine; ATTENDING PHYSICIAN Family Medicine; CONSULT PHYSICIAN Internal Medicine; EMERGENCY PHYSICIAN Student in an Organized Health Care Education/Training Program; FAMILY PHYSICIAN Internal Medicine
PROC: 4A023N7 Measurement of Cardiac Sampling and Pressure, Left Heart, Percutaneous Approach (ICD-10-PCS; 2024-10-12)
PROC: B2111ZZ Fluoroscopy of Multiple Coronary Arteries using Low Osmolar Contrast (ICD-10-PCS; 2024-10-12)
DX: I21.4 Non-ST elevation (NSTEMI) myocardial infarction (principal); E11.9 Type 2 diabetes mellitus without complications; I10 Essential (primary) hypertension; I25.10 Atherosclerotic heart disease of native coronary artery without angina pectoris; E66.09 Other obesity due to excess calories; Z68.37 Body mass index [BMI] 37.0-37.9, adult; Z95.5 Presence of coronary angioplasty implant and graft; Z79.899 Other long term (current) drug therapy
CPT/HCPCS: 71046; 80048; 80053; 80061; 82962; 83036; 84484; 85025; 85027; 85730; 93005; 93306; 93458; 96365; 96366; 99291; C1894; Q9967